=== PATIENT | female | born 1990 | race Caucasian/White ===

== ENCOUNTER 2016-07-22 09:49 | Emergency (ER) | payer BC, OTHER ==
[2016-07-22 09:58] VITALS: BP 126/76; PULSE 109; TEMP 98.5; BMI 31.6
[2016-07-22] MEDS ORDERED: ACETAMINOPHEN 500 MG TABLET (FP) PO ONE (11:34)
[2016-07-22] MEDS ORDERED: ACETAMINOPHEN 500 MG TABLET (FP) ONE (11:36)
--- NOTE | 2016-07-22 11:40 | PDOC ---
History of Present Illness - General Chief Complaint: Cold Symptoms Stated Complaint: COUGH (EMPLOYEE) Time Seen by Provider: 07/22/16 11:07 History Source: Patient Exam Limitations: No Limitations - History of Present Illness Initial Comments: 07/22/16 11:35 My chief complaint: Chills, dry cough, nasal congestion with postnasal drip wheezing History present illness: Patient is a 25 year old female with a history of asthma employee of [employer] here today complaining of sudden onset of body aches, chills since last night with a dry cough, nasal congestion with postnasal drip and intermittent wheezing with shortness of breath last night. He reports that shortness of breath lasted only a few minutes. Patient reports having had her influenza vaccine. Patient denies any previous hospitalizations due to her asthma. Patient denies any shortness of breath or any sore throat presently. Has been around a lot of other sick people with the flu here in the hospital. 07/22/16 11:38 Timing/Duration: getting worse Severity: moderate Associated Symptoms: reports: cough (dry ), fever/chills (chills), shortness of breath (yesterday for few minutes) Past History - Past Medical History Allergies/Adverse Reactions: Allergies Allergy/AdvReac Type Severity Reaction Status Date / Time No Known Drug Allergies Allergy Verified 07/22/16 09:58 Home Medications: Ambulatory Orders Albuterol Sulfate Inhaler - [Ventolin HFA Inhaler -] 2 inh PO Q4H PRN #1 inhaler 07/22/16 Oseltamivir Phosphate [Tamiflu -] 75 mg PO BID #10 capsule MDD 2 07/22/16 Anemia: No Asthma: No Cancer: No Cardiac Disorders: No CVA: No COPD: No CHF: No Dementia: No Diabetes: No GI Disorders: No Disorders: No HTN: No Hypercholesterolemia: No Liver Disease: No Seizures: No Thyroid Disease: No - Psycho/Social/Smoking Cessation Hx Anxiety: No Suicidal Ideation: No Smoking History: Never smoked Have you smoked in the past 12 months: No Hx Alcohol Use: Yes (SOCIAL) Drug/Substance Use Hx: No Substance Use Type: None Hx Substance Use Treatment: No Review of Systems - Review of Systems Able to Perform ROS?: Yes Constitutional: Yes: Chills HEENTM: Yes: Nose Congestion (with post nasal drip) Respiratory: Yes: Cough, Shortness of Breath (when sitting yesterday none today ), Wheezing (intermittent since yesterday none today ) Cardiac (ROS): No: Symptoms Reported ABD/GI: No: Symptoms Reported : No: Symptoms Reported Musculoskeletal: No: Symptoms Reported Integumentary: No: Symptoms Reported Neurological: No: Symptoms reported *Physical Exam - Vital Signs Last Vital Signs Temp Pulse Resp BP Pulse Ox 98.5 F 109 H 20 126/76 98 07/22/16 09:55 07/22/16 09:55 07/22/16 09:55 07/22/16 09:55 07/22/16 09:55 - Physical Exam General Appearance: Yes: Appropriately Dressed HEENT: positive: TMs Normal, Nasal Congestion. negative: Pharyngeal Erythema, Tonsillar Exudate, Tonsillar Erythema, Rhinorrhea, Sinus Tenderness Neck: negative: Lymphadenopathy (R), Lymphadenopathy (L) Respiratory/Chest: positive: Lungs Clear, Normal Breath Sounds. negative: Chest Tender, Respiratory Distress Integumentary: positive: Normal Color Neurologic: positive: Alert, Normal Response, Responsive Medical Decision Making - Medical Decision Making 07/22/16 11:37 Patient is a 25 year old female with a history of asthma employee of [employer] here today complaining of sudden onset of body aches, chills since last night with a dry cough, nasal congestion with postnasal drip and intermittent wheezing with shortness of breath last night. He reports that shortness of breath lasted only a few minutes. Patient reports having had her influenza vaccine. Patient denies any previous hospitalizations due to her asthma. Patient denies any shortness of breath or any sore throat presently. Has been around a lot of other sick people with the flu here in the hospital. She denies any chance of . Nasal congestion with postnasal drip, dry cough, chills, generalized body aches consistent with flulike symptom Asthma exacerbation Plan: Influenza A&B rapid + influenza A Acetaminophen 1 g presently 07/22/16 12:12 tamiflu 75 mg bid for 5 days 07/22/16 12:17 albuterol HFA 2 puffs every hrs prn sob/wheezing *DC/Admit/Observation/Transfer Diagnosis at time of Disposition: Influenza A - Discharge Dispostion Disposition: HOME Condition at time of disposition: Stable - Prescriptions Prescriptions: Oseltamivir Phosphate [Tamiflu -] 75 mg PO BID #10 capsule MDD 2 Albuterol Sulfate Inhaler - [Ventolin HFA Inhaler -] 2 inh PO Q4H PRN #1 inhaler PRN Reason: Short Of Breath/Wheezing - Referrals Referrals: Merary Spring MD [Primary Care Provider] - - Patient Instructions Additional Instructions: Home and rest and drink a lot a fluids Take either acetaminophen or ibuprofen or Aleve for body aches and fever Follow-up with your primary care provider when symptoms subside Use albuterol nebulizer or pump as needed for wheezing as previously ordered Return to emergency room if any difficulty breathing Patient voiced understanding of discharge instructions and QUESTIONS were answered - Post Discharge Activity Work/School Note: Back to Work
== END 2016-07-22 12:18 | disposition home or self-care (01) ==
LOC: JERFT 09:49
DX: J09.X2 Influenza due to identified novel influenza A virus with other respiratory manifestations (principal)
CPT/HCPCS: 87804; 99281-25

== ENCOUNTER 2016-08-11 09:29 | Emergency (ER) | payer OTHER ==
[2016-08-11 09:39] VITALS: BP 123/74; PULSE 105; TEMP 98.1; BMI 31.1
[2016-08-11] MEDS ORDERED: ACETAMINOPHEN 500 MG TABLET (FP) ONE (10:54)
--- NOTE | 2016-08-11 11:58 | PDOC ---
History of Present Illness - General Chief Complaint: Sore Throat Stated Complaint: EMPLOYEE, SORE THROAT Time Seen by Provider: 08/11/16 10:23 History Source: Patient Exam Limitations: No Limitations - History of Present Illness Initial Comments: 08/11/16 11:55 Chief complaint sore throat and generalized body aches Review of present illness: Patient is a 25-year-old female with h/o anemia and asthma employee of [employer] here today complaining of sore throat 3 days with generalized body aches and fever 2 days ago. Patient reports that she was diagnosed with the flu on 07/22/2016 for which she took Tamiflu for 5 days. Patient denies any difficulty breathing or swallowing. Timing/Duration: getting worse Severity: mild Associated Symptoms: reports: fever/chills, other (sore throat ) Past History - Past Medical History Allergies/Adverse Reactions: Allergies Allergy/AdvReac Type Severity Reaction Status Date / Time No Known Drug Allergies Allergy Verified 08/11/16 09:37 Home Medications: Ambulatory Orders Albuterol Sulfate Inhaler - [Ventolin HFA Inhaler -] 2 inh PO Q4H PRN #1 inhaler 07/22/16 Oseltamivir Phosphate [Tamiflu -] 75 mg PO BID #10 capsule MDD 2 07/22/16 Anemia: Yes Asthma: No Cancer: No Cardiac Disorders: No CVA: No COPD: No CHF: No Dementia: No Diabetes: No GI Disorders: No Disorders: No HTN: No Hypercholesterolemia: No Liver Disease: No Seizures: No Thyroid Disease: No - Psycho/Social/Smoking Cessation Hx Anxiety: No Suicidal Ideation: No Smoking History: Never smoked Have you smoked in the past 12 months: No Information on smoking cessation initiated: No Hx Alcohol Use: No Drug/Substance Use Hx: No Substance Use Type: None Hx Substance Use Treatment: No Review of Systems - Review of Systems Able to Perform ROS?: Yes Constitutional: Yes: Chills, Fever HEENTM: Yes: Throat Pain (3 days ) Respiratory: No: Symptoms reported Cardiac (ROS): No: Symptoms Reported ABD/GI: No: Symptoms Reported : No: Symptoms Reported Musculoskeletal: Yes: Other (generalized bodyaches ) Integumentary: No: Symptoms Reported Neurological: No: Symptoms reported *Physical Exam - Vital Signs Last Vital Signs Temp Pulse Resp BP Pulse Ox 98.1 F 105 H 16 123/74 100 08/11/16 09:37 08/11/16 09:37 08/11/16 09:37 08/11/16 09:37 08/11/16 09:37 - Physical Exam General Appearance: Yes: Appropriately Dressed HEENT: positive: TMs Normal, Pharyngeal Erythema, Tonsillar Erythema (with no uvular deviation ). negative: Tonsillar Exudate Neck: negative: Lymphadenopathy (R), Lymphadenopathy (L) Respiratory/Chest: positive: Lungs Clear, Normal Breath Sounds. negative: Chest Tender, Respiratory Distress Cardiovascular: positive: Regular Rhythm, Regular Rate, S1, S2 Integumentary: positive: Normal Color Neurologic: positive: Alert, Normal Response, Responsive ED Treatment Course - ADDITIONAL ORDERS Additional order review: 08/11/16 10:40 Influenza Types A,B Antigen (JIMMY) - Final Nasopharyngeal Swab - Final 08/11/16 10:40 Group A Strep Rapid Antigen - Final Throat Medical Decision Making - Medical Decision Making 08/11/16 11:56 Patient is a 25-year-old female with h/o anemia and asthma employee of [employer] here today complaining of sore throat 3 days with generalized body aches and fever 2 days ago. Patient reports that she was diagnosed with the flu on 07/22/2016 for which she took Tamiflu for 5 days. Patient denies any difficulty breathing or swallowing. Rule out strep throat Rule out influenza A and B recurrence Plan: Acetaminophen 1000 mg by mouth now influenza A & B rapid negative throat c & S + for beta hemolytic strep group A Bicillin LA 1,200,000 units IM now 08/11/16 11:58 08/11/16 12:22 *DC/Admit/Observation/Transfer Diagnosis at time of Disposition: Acute streptococcal tonsillitis Qualifiers: Streptococcal tonsillitis recurrence: non-recurrent Qualified Code(s): J03.00 - Acute streptococcal tonsillitis, unspecified - Discharge Dispostion Disposition: HOME Condition at time of disposition: Stable - Referrals Referrals: Jason Peterson [Primary Care Provider] - - Patient Instructions Additional Instructions: Throughout her toothbrush within the next 2 days Drink A lot a fluids and rest Follow-up with your primary in the next few days Return to emergency room if any difficulty breathing or swallowing Patient voiced understanding of discharge instructions and all questions were answered - Post Discharge Activity
[2016-08-11] MEDS ORDERED: PENICILLIN G BENZATHINE 1,200,000 UNIT/2 ML PFS IM ONE (12:21)
[2016-08-11] MEDS ORDERED: PENICILLIN G BENZATHINE 2,400,000 UNIT/4 ML PFS ONE (12:26)
== END 2016-08-11 12:35 | disposition home or self-care (01) ==
LOC: JERFT 09:29
DX: J03.00 Acute streptococcal tonsillitis, unspecified (principal); B95.0 Streptococcus, group A, as the cause of diseases classified elsewhere; J45.909 Unspecified asthma, uncomplicated; D64.9 Anemia, unspecified
CPT/HCPCS: 87070; 87077; 87430; 87804; 99281-25

== ENCOUNTER 2017-06-23 07:53 | Emergency (ER) | payer OTHER ==
[2017-06-23 07:58] VITALS: BP 137/80; PULSE 102; TEMP 98.2; BMI 34.2
[2017-06-23] MEDS ORDERED: ALBUTEROL SO4 2.5/IPRATROPIUM 0.5 INH SOL 3 ML VIAL.NEB. NEB ONE (08:24)
[2017-06-23] MEDS ORDERED: predniSONE 20 MG TABLET (UD) PO ONE (08:24)
[2017-06-23] MEDS ORDERED: predniSONE 20 MG TABLET (UD) ONE (08:27)
--- NOTE | 2017-06-23 08:31 | PDOC ---
History of Present Illness - General Chief Complaint: Cold Symptoms Stated Complaint: ASTHMA,VOMITING Time Seen by Provider: 06/23/17 08:18 History Source: Patient Exam Limitations: No Limitations - History of Present Illness Initial Comments: 06/23/17 08:25 c/o worsden cough/ excess thick phlegm x 2 days.= no fevers . States feels her Proventil inhaler ran out 06/23/17 09:50 Timing/Duration: reports: getting worse Severity: reports: mild, moderate Associated Symptoms: reports: chest pain/soreness, fever/chills Past History - Travel Traveled outside of the country in the last 30 days: No Close contact w/someone who was outside of country & ill: No - Past Medical History Allergies/Adverse Reactions: Allergies Allergy/AdvReac Type Severity Reaction Status Date / Time No Known Drug Allergies Allergy Verified 06/23/17 07:59 Home Medications: Ambulatory Orders Albuterol Sulfate [Proventil HFA Inhaler -] 1 - 2 inh PO QID #1 inhaler Prednisone [Deltasone -] 20 mg PO BID #8 tablet 06/23/17 Anemia: Yes Asthma: Yes Cancer: No Cardiac Disorders: No CVA: No COPD: No CHF: No Dementia: No Diabetes: No GI Disorders: No Disorders: No HTN: No Hypercholesterolemia: No Liver Disease: No Seizures: No Thyroid Disease: No - Suicide/Smoking/Psychosocial Hx Smoking History: Never smoked Have you smoked in the past 12 months: No Hx Alcohol Use: Yes (social) Drug/Substance Use Hx: No Substance Use Type: None Hx Substance Use Treatment: No Review of Systems - Review of Systems Able to Perform ROS?: Yes Is the patient limited [place] proficient: Yes Constitutional: Yes: Symptoms Reported, See HPI, Fever, Malaise. No: Chills HEENTM: Yes: Symptoms Reported, See HPI, Nose Congestion Respiratory: Yes: Symptoms reported, See HPI, Cough, Wheezing Cardiac (ROS): No: Symptoms Reported, Chest Pain ABD/GI: No: Constipated, Diarrhea : No: Symptoms Reported Neurological: No: Symptoms reported, Headache All Other Systems: Reviewed and Negative *Physical Exam - Vital Signs Last Vital Signs Temp Pulse Resp BP Pulse Ox 98.2 F 102 H 137/80 99 06/23/17 07:56 06/23/17 07:56 06/23/17 07:56 06/23/17 07:56 - Physical Exam General Appearance: Yes: Nourished, Appropriately Dressed, Apparent Distress, Mild Distress HEENT: positive: NANDINI, TMs Normal (congested ), Pharynx Normal, Rhinorrhea, Sinus Tenderness. negative: Normal ENT Inspection, Tonsillar Erythema (clear drainage) Neck: positive: Tender, Supple, Lymphadenopathy (R), Lymphadenopathy (L) Respiratory/Chest: positive: Lungs Clear, Wheezing (course inspiratory expiratory breath sounds, with tightness and wheezing). negative: Normal Breath Sounds Cardiovascular: positive: Regular Rate Gastrointestinal/Abdominal: positive: Soft Extremity: positive: Normal Capillary Refill, Normal Inspection, Normal Range of Motion Integumentary: positive: Dry, Warm, Pale. negative: Normal Color Neurologic: positive: pipe cleaner II-XII NML intact, Fully Oriented, Alert, Normal Mood/ Affect, Normal Response, Motor Strength 5/5 Progress Note - Progress Note Progress Note: Upper respiratory infection with asthmatic exacerbation. No fevers therefore will treat for viral illness and provided prednisone and albuterol to continue *DC/Admit/Observation/Transfer Diagnosis at time of Disposition: Upper respiratory infection, viral - Discharge Dispostion Disposition: HOME Condition at time of disposition: Stable Admit: No - Prescriptions Prescriptions: Albuterol Sulfate [Proventil HFA Inhaler -] 1 - 2 inh PO QID #1 inhaler Prednisone [Deltasone -] 20 mg PO BID #8 tablet - Referrals Referrals: Jason Peterson [Primary Care Provider] - - Patient Instructions Printed Discharge Instructions: DI for Viral Upper Respiratory Infection -- Adult Additional Instructions: Rest, drink lots of fluids: Teas, water, soups, Pedialyte Saltwater gargles Steamy showers/seem to face break up mucus Avoid contact with others until fevers and cough resolved Lots of handwashing and good hygiene Continue [id number] medications for symptomatic relief Tylenol or Motrin for fever and pain Continue albuterol nebulizers every 4-6 hours for the next 2 days then as needed for continued cough Prednisone as directed until completed Followup with private physician in one to 2 days Return to emergency department / pediatric hospital for worsened symptoms, fevers, dehydration - Post Discharge Activity Forms/Work/School Notes: Back to Work
== END 2017-06-23 09:16 | disposition home or self-care (01) ==
LOC: JERFT 07:53
PROC: 3E0F7GC Introduction of Other Therapeutic Substance into Respiratory Tract, Via Natural or Artificial Opening (ICD-10-PCS; principal; 2017-06-23)
DX: J45.901 Unspecified asthma with (acute) exacerbation (principal); J06.9 Acute upper respiratory infection, unspecified; B97.89 Other viral agents as the cause of diseases classified elsewhere
CPT/HCPCS: 99281-25

== ENCOUNTER 2017-07-13 08:26 | Emergency (ER) | payer OTHER ==
[2017-07-13 08:30] VITALS: BP 132/76; PULSE 92; TEMP 97.9; BMI 34.2
--- NOTE | 2017-07-13 09:45 | PDOC ---
History of Present Illness - General Chief Complaint: Cold Symptoms Stated Complaint: EMPLOYEE, INJURY, SORE THROAT Time Seen by Provider: 07/13/17 08:46 History Source: Patient Exam Limitations: No Limitations - History of Present Illness Initial Comments: 07/13/17 09:40 Patient is a [26-year-old female, no significant medical history currently on no medication reports feeling fatigued on , since with sore throat, moist cough, sinus pressure. Intermittent fever. No N/V/D. ] Past Medical History: [Denies]. Allergies: No known allergies Medications: [None] Family History: Non-contributory Social History: Denies smoking, alcohol use, or IVDU Review of Systems GENERAL/CONSTITUTIONAL: [Tactile fever. No weakness. No weight change.] HEAD, EYES, EARS, NOSE AND THROAT: [No change in vision. No ear pain or discharge. Sore throat and dysphagia. Sinus pressure ] CARDIOVASCULAR: [No chest pain or shortness of breath.] RESPIRATORY: [Nonproductive cough, No wheezing, or hemoptysis.] GASTROINTESTINAL: [No nausea, vomiting, diarrhea or constipation. No rectal bleeding.] GENITOURINARY: [No dysuria, frequency, or change in urination.] MUSCULOSKELETAL: [No joint or muscle swelling or pain. No neck or back pain.] SKIN AND BREASTS: [No rash or easy bruising.] NEUROLOGIC: [No headache, vertigo, loss of consciousness, or loss of sensation.] PSYCHIATRIC: [No depression or anxiety.] ENDOCRINE: [No increased thirst. No abnormal weight change.] HEMATOLOGIC/LYMPHATIC: [No anemia, easy bleeding, or history of blood clots.] ALLERGIC/IMMUNOLOGIC: [No hives or skin allergy. No latex allergy.] Physical Exam: GENERAL: [The patient is awake, alert, and fully oriented, in no acute distress. ] HEAD: [Normal with no signs of trauma. + frontal sinus pressure and pain] EYES: [Pupils equal, round and reactive to light, extraocular movements intact, sclera anicteric, conjunctiva clear.] ENT: [Ears normal, nares congested, erythamatous, oropharynx erythematous without exudates. Moist mucous membranes. No uvula deviation] NECK: [Normal range of motion, supple without lymphadenopathy, JVD, or masses.] LUNGS: [Breath sounds equal, clear to auscultation bilaterally. No wheezes, and no crackles.] HEART: [Regular rate and rhythm, normal S1 and S2 without murmur, rub or gallop. ] ABDOMEN: [Soft, nontender, normoactive bowel sounds. No guarding, no rebound. No masses. No bruising or abrasions] MUSCULOSKELETAL: [Normal range of motion, no edema. No clubbing or cyanosis. No cords, erythema, or tenderness. No CVA Tenderness with fist.] NEUROLOGICAL: [Cranial nerves II through XII grossly intact. Normal speech, normal gait.] SKIN: [Warm, Dry, normal turgor, no rashes or lesions noted.] Past History - Past Medical History Allergies/Adverse Reactions: Allergies Allergy/AdvReac Type Severity Reaction Status Date / Time No Known Drug Allergies Allergy Verified 07/13/17 08:28 Home Medications: Ambulatory Orders Amox-Tr/K Cl [Augmentin - 875Mg Tablet] 1 tab PO BID #14 tablet 07/13/17 Fluticasone Prop 0.05% Nasal [Flonase -] 1 - 2 spray NS BID #1 spray.pump Anemia: Yes Asthma: Yes Cancer: No Cardiac Disorders: No CVA: No COPD: No CHF: No Dementia: No Diabetes: No GI Disorders: No Disorders: No HTN: No Hypercholesterolemia: No Liver Disease: No Seizures: No Thyroid Disease: No - Suicide/Smoking/Psychosocial Hx Smoking History: Never smoked Have you smoked in the past 12 months: No Information on smoking cessation initiated: No Hx Alcohol Use: Yes (social) Drug/Substance Use Hx: No Substance Use Type: None Hx Substance Use Treatment: No *Physical Exam - Vital Signs Last Vital Signs Temp Pulse Resp BP Pulse Ox 97.9 F 92 H 18 132/76 100 07/13/17 08:28 07/13/17 08:28 07/13/17 08:28 07/13/17 08:28 07/13/17 08:28 ED Treatment Course - ADDITIONAL ORDERS Additional order review: 07/13/17 09:05 Group A Strep Rapid Antigen - Final Throat Medical Decision Making - Medical Decision Making 07/13/17 09:45 A/P : Patient here for evaluation of sinus pressure and pain, + sore throat, tactile temperature. Patient with clinical signs of an acute sinusitis. Will send rapid strep. Rapid strep is negative, will DC patient home on Augmentin and Flonase, follow- up with PMD in 3 days if symptoms do not start to resolve I discussed the physical exam findings, ancillary test results and final diagnoses with the patient. I answered all of the patient's questions. The patient was satisfied with the care received and felt comfortable with the discharge plan and treatment plan. The patient will call to arrange follow-up and will return to the Emergency Department with any new, persistent or worsening symptoms. *DC/Admit/Observation/Transfer Diagnosis at time of Disposition: Upper respiratory infection, acute - Discharge Dispostion Disposition: HOME Condition at time of disposition: Good Admit: No - Prescriptions Prescriptions: Amox-Tr/K Cl [Augmentin - 875Mg Tablet] 1 tab PO BID #14 tablet Fluticasone Prop 0.05% Nasal [Flonase -] 1 - 2 spray NS BID #1 spray.pump - Referrals Referrals: Jason Peterson [Primary Care Provider] - - Patient Instructions Printed Discharge Instructions: DI for Viral Upper Respiratory Infection -- Adult Additional Instructions: Keep head of bed elevated 45 when sleeping Antibiotics as ordered until completed Cool air humidifier at night while asleep Motrin for fever greater than 101 Followup in the primary care doctor's office in 2 days for evaluation. If any respiratory distress, increased cough, inability to drink, increased wheezing please return immediately to emergency department. - Post Discharge Activity Forms/Work/School Notes: Back to Work
== END 2017-07-13 10:02 | disposition home or self-care (01) ==
LOC: JERFT 08:26
DX: J06.9 Acute upper respiratory infection, unspecified (principal)
CPT/HCPCS: 87070; 87077; 87430; 99281-25

== ENCOUNTER 2018-01-03 07:37 | Emergency (ER) | payer OTHER ==
[2018-01-03 07:57] VITALS: BP 121/63; PULSE 88; TEMP 98.1; BMI 33.3
[2018-01-03] MEDS ORDERED: ALBUTEROL SO4 2.5/IPRATROPIUM 0.5 INH SOL 3 ML VIAL.NEB. NEB ONE ×3 (08:04→08:35)
[2018-01-03] MEDS ORDERED: predniSONE 20 MG TABLET (UD) PO ONE (08:32)
[2018-01-03] MEDS ORDERED: predniSONE 20 MG TABLET (UD) ONE (08:35)
--- NOTE | 2018-01-03 08:35 | PDOC ---
History of Present Illness - General Chief Complaint: Asthma Stated Complaint: WHEEZING,COUGH Time Seen by Provider: 01/03/18 08:16 History Source: Patient Exam Limitations: No Limitations - History of Present Illness Initial Comments: 01/03/18 08:32 Patient came for evaluation of acute asthma exacerbation. Suffers from asthma and whether has caused shortness of breath and wheezing. Worse this morning. The treatment at home, but did not improve came to ER for evaluation. Uses albuterol nebs at home Timing/Duration: reports: just prior to arrival, getting worse Severity: reports: moderate Associated Symptoms: reports: chest pain/soreness, cough, nasal congestion, nasal drainage. denies: fever/chills Past History - Travel Traveled outside of the country in the last 30 days: No Close contact w/someone who was outside of country & ill: No - Past Medical History Allergies/Adverse Reactions: Allergies Allergy/AdvReac Type Severity Reaction Status Date / Time No Known Drug Allergies Allergy Verified 01/03/18 07:44 Home Medications: Ambulatory Orders predniSONE [Deltasone -] 20 mg PO BID #8 tablet 01/03/18 Anemia: Yes Asthma: Yes Cancer: No Cardiac Disorders: No CVA: No COPD: No CHF: No DVT: No Dementia: No Diabetes: No GI Disorders: No Disorders: No HTN: No Hypercholesterolemia: No Liver Disease: No Seizures: No Thyroid Disease: No - Suicide/Smoking/Psychosocial Hx Smoking History: Never smoked Have you smoked in the past 12 months: No Information on smoking cessation initiated: No Hx Alcohol Use: Yes (social) Drug/Substance Use Hx: No Substance Use Type: None Hx Substance Use Treatment: No Review of Systems - Review of Systems Able to Perform ROS?: Yes Is the patient limited Welsh proficient: Yes Constitutional: Yes: Symptoms Reported, See HPI, Malaise. No: Fever Respiratory: Yes: Symptoms reported, See HPI, Cough, Shortness of Breath, Wheezing Integumentary: Yes: Symptoms Reported, See HPI All Other Systems: Reviewed and Negative *Physical Exam - Vital Signs Last Vital Signs Temp Pulse Resp BP Pulse Ox 98.1 F 88 18 121/63 100 01/03/18 07:44 01/03/18 07:44 01/03/18 07:44 01/03/18 07:44 01/03/18 07:44 - Physical Exam General Appearance: Yes: Nourished, Appropriately Dressed, Apparent Distress HEENT: positive: NANDNII, Normal ENT Inspection, TMs Normal, Pharynx Normal Neck: positive: Supple, Lymphadenopathy (L). negative: Tender, Lymphadenopathy (R) Respiratory/Chest: positive: Wheezing (inspiratory and expiratory breath sounds , wheezing throughout) Gastrointestinal/Abdominal: positive: Soft Musculoskeletal: positive: Normal Inspection Extremity: positive: Normal Capillary Refill Integumentary: positive: Normal Color, Dry, Warm Neurologic: positive: medical records supervisor II-XII NML intact, Fully Oriented, Alert, Normal Mood/ Affect, Normal Response, Motor Strength 11/13 ED Treatment Course - Medications Given in the ED: ED Medications Discontinued Medications Generic Name Dose Route Start Last Admin Trade Name Freq PRN Reason Stop Dose Admin Albuterol/Ipratropium 1 amp 01/03/18 08:04 01/03/18 07:50 Duoneb - NEB 01/03/18 08:05 1 amp NOW ONE Administration Medical Decision Making - Medical Decision Making 01/03/18 10:23 Much improved after 3 DuoNeb and 60 mg of by mouth prednisone. Aerating much better and states feels well ready for discharge. *DC/Admit/Observation/Transfer Diagnosis at time of Disposition: Asthma Qualifiers: Asthma severity: moderate Asthma persistence: unspecified Asthma complication type: with acute exacerbation Qualified Code(s): J45.901 - Unspecified asthma with (acute) exacerbation - Discharge Dispostion Disposition: HOME Condition at time of disposition: Stable Decision to Admit order: No - Prescriptions Prescriptions: predniSONE [Deltasone -] 20 mg PO BID #8 tablet - Referrals - Patient Instructions Printed Discharge Instructions: Asthma -- Adult Additional Instructions: Rest, drink lots of fluids: Teas, water, soups, Pedialyte Saltwater gargles Steamy showers/seem to face break up mucus Avoid contact with others until fevers and cough resolved Lots of handwashing and good hygiene Continue [id number] medications for symptomatic relief Tylenol or Motrin for fever and pain Continue albuterol nebulizers every 4-6 hours for the next 2 days then as needed for continued cough Prednisone as directed until completed Followup with private physician in one to 2 days Return to emergency department / pediatric hospital for worsened symptoms, fevers, dehydration - Post Discharge Activity Forms/Work/School Notes: Back to Work
== END 2018-01-03 10:03 | disposition home or self-care (01) ==
LOC: JER 07:37 → JERFT 07:37
PROC: 3E0F7GC Introduction of Other Therapeutic Substance into Respiratory Tract, Via Natural or Artificial Opening (ICD-10-PCS; principal; 2018-01-03)
PROC: 3E0F7GC Introduction of Other Therapeutic Substance into Respiratory Tract, Via Natural or Artificial Opening (ICD-10-PCS; 2018-01-03)
DX: J45.901 Unspecified asthma with (acute) exacerbation (principal)
CPT/HCPCS: 99281-25; J7620

== ENCOUNTER 2018-04-19 08:05 | Emergency (ER) | payer OTHER ==
[2018-04-19 08:16] VITALS: BP 108/75; PULSE 85; TEMP 98.5; BMI 34.7
[2018-04-19] MEDS ORDERED: ALBUTEROL SO4 2.5/IPRATROPIUM 0.5 INH SOL 3 ML VIAL.NEB. NEB ONE ×3 (08:28→09:00)
--- NOTE | 2018-04-19 08:38 | PDOC ---
History of Present Illness - General Chief Complaint: Asthma Stated Complaint: BREATHING PROBLEMS Time Seen by Provider: 04/19/18 08:22 History Source: Patient Exam Limitations: No Limitations - History of Present Illness Initial Comments: 04/19/18 08:30 27 yr female with c/o cough short of breath started last night, pt has history of asthma no intubations or hospitalizations. denies fever. 04/19/18 09:15 Past History - Past Medical History Allergies/Adverse Reactions: Allergies Allergy/AdvReac Type Severity Reaction Status Date / Time No Known Drug Allergies Allergy Verified 04/19/18 08:13 Home Medications: Ambulatory Orders predniSONE [Deltasone -] 20 mg PO BID #8 tablet 01/03/18 Albuterol Sulfate Inhaler - [Ventolin HFA Inhaler -] 1 - 2 inh PO Q4H #1 inhaler 04/19/18 Prednisone [Deltasone] 40 mg PO DAILY #6 tablet 04/19/18 Prednisone [Deltasone] 40 mg PO DAILY #6 tablet 04/19/18 Anemia: Yes Asthma: Yes Cancer: No Cardiac Disorders: No CVA: No COPD: No CHF: No DVT: No Dementia: No Diabetes: No GI Disorders: No Disorders: No HTN: No Hypercholesterolemia: No Liver Disease: No Seizures: No Thyroid Disease: No - Suicide/Smoking/Psychosocial Hx Smoking History: Never smoked Have you smoked in the past 12 months: No Hx Alcohol Use: Yes (social) Drug/Substance Use Hx: No Substance Use Type: None Hx Substance Use Treatment: No Review of Systems - Review of Systems Able to Perform ROS?: Yes Is the patient limited Sami proficient: No Constitutional: No: Symptoms Reported HEENTM: No: Symptoms Reported Respiratory: Yes: Symptoms reported Cardiac (ROS): No: Symptoms Reported ABD/GI: No: Symptoms Reported : No: Symptoms Reported *Physical Exam - Vital Signs Last Vital Signs Temp Pulse Resp BP Pulse Ox 98.5 F 85 18 108/75 98 04/19/18 08:13 04/19/18 08:13 04/19/18 08:13 04/19/18 08:13 04/19/18 08:13 - Physical Exam General Appearance: Yes: Nourished, Appropriately Dressed HEENT: positive: EOMI, NANDINI, TMs Normal, Pharynx Normal Neck: positive: Supple. negative: Tender Respiratory/Chest: positive: Lungs Clear, Normal Breath Sounds, Decreased Breath Sounds. 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, Fully Oriented, Alert, Normal Mood/ Affect Medical Decision Making - Medical Decision Making 04/19/18 09:16 cc: cough , short of breath no wheezing no fever no abd pain will give duoneb x2 04/19/18 09:54 pt improved after the 2 nebulizers feels much better will dc home with prednisone and albuterol inhlarer pt agrees with plan of care *DC/Admit/Observation/Transfer Diagnosis at time of Disposition: Asthma Qualifiers: Asthma severity: moderate Asthma persistence: persistent Asthma complication type: uncomplicated Qualified Code(s): J45.40 - Moderate persistent asthma, uncomplicated - Discharge Dispostion Disposition: HOME Condition at time of disposition: Good - Prescriptions Prescriptions: Albuterol Sulfate Inhaler - [Ventolin HFA Inhaler -] 1 - 2 inh PO Q4H #1 inhaler Prednisone [Deltasone] 40 mg PO DAILY #6 tablet Prednisone [Deltasone] 40 mg PO DAILY #6 tablet - Referrals Referrals: Barrie Canseco [Primary Care Provider] - - Patient Instructions Printed Discharge Instructions: Asthma -- Adult Additional Instructions: drink pleanty of water to stay hydrated increase vitamin c and Zinc to boost immune system (Shanell C) take prednisone as directed use inhaler every 4hrs as needed return if worse please follow with your doctor in 24hrs for a follow up - Post Discharge Activity
== END 2018-04-19 09:58 | disposition home or self-care (01) ==
LOC: JERFT 08:05
PROC: 3E0F7GC Introduction of Other Therapeutic Substance into Respiratory Tract, Via Natural or Artificial Opening (ICD-10-PCS; principal; 2018-04-19)
PROC: 3E0F7GC Introduction of Other Therapeutic Substance into Respiratory Tract, Via Natural or Artificial Opening (ICD-10-PCS; 2018-04-19)
DX: J45.40 Moderate persistent asthma, uncomplicated (principal)
CPT/HCPCS: 99281-25; J7620

== ENCOUNTER 2018-05-02 09:25 | Emergency (ER) | payer OTHER ==
[2018-05-02 09:31] VITALS: BP 107/80; PULSE 84; TEMP 98.2; BMI 34.2
[2018-05-02] MEDS ORDERED: PSEUDOEPHEDRINE HCL 30 MG TABLET PO ONE (10:17)
[2018-05-02] MEDS ORDERED: PSEUDOEPHEDRINE HCL 60 MG TABLET ONE (10:22)
--- NOTE | 2018-05-02 10:22 | PDOC ---
History of Present Illness - General Chief Complaint: Cold Symptoms Stated Complaint: COLD SYMPTOMS Time Seen by Provider: 05/02/18 09:41 History Source: Patient Exam Limitations: No Limitations Past History - Travel Traveled outside of the country in the last 30 days: No Close contact w/someone who was outside of country & ill: No - Past Medical History Allergies/Adverse Reactions: Allergies Allergy/AdvReac Type Severity Reaction Status Date / Time No Known Drug Allergies Allergy Verified 05/02/18 09:28 Home Medications: Ambulatory Orders Albuterol Sulfate Inhaler - [Ventolin HFA Inhaler -] 1 - 2 inh PO Q4H #1 inhaler 04/19/18 Acetaminophen W/ Codeine Liq [Tylenol W/Codeine Oral Solution -] 10 ml PO HS # 120 ml MDD 1 05/02/18 Fluticasone Prop 0.05% Nasal [Flonase -] 1 - 2 spray NS DAILY #1 spray.pump Pseudoephedrine HCl 30 mg PO Q6H #28 tablet 05/02/18 Anemia: Yes Asthma: Yes Cancer: No Cardiac Disorders: No CVA: No COPD: No CHF: No DVT: No Dementia: No Diabetes: No GI Disorders: No Disorders: No HTN: No Hypercholesterolemia: No Liver Disease: No Seizures: No Thyroid Disease: No - Suicide/Smoking/Psychosocial Hx Smoking History: Never smoked Have you smoked in the past 12 months: No Hx Alcohol Use: Yes (social) Drug/Substance Use Hx: No Substance Use Type: None Hx Substance Use Treatment: No Review of Systems - Review of Systems Able to Perform ROS?: Yes Comments:: 05/02/18 10:25 CONSTITUTIONAL: Absent: fever, chills, diaphoresis, generalized weakness, malaise, loss of appetite HEENT: Absent: rhinorrhea, nasal congestion, throat pain, throat swelling, difficulty swallowing, mouth swelling, ear pain, eye pain, visual Changes CARDIOVASCULAR: Absent: chest pain, loss of consciousness, palpitations, irregular heart rate, peripheral edema RESPIRATORY: Absent: cough, shortness of breath, dyspnea with exertion, orthopnea, wheezing, stridor, hemoptysis GASTROINTESTINAL: Absent: abdominal pain, abdominal distension, nausea, vomiting, diarrhea, constipation, melena, hematochezia GENITOURINARY: Absent: dysuria, frequency, urgency, hesitancy, hematuria, flank pain, genital pain MUSCULOSKELETAL: Absent: myalgia, arthralgia, joint swelling SKIN: Absent: rash, itching, pallor HEMATOLOGIC/IMMUNOLOGIC: Absent: easy bleeding, easy bruising, lymphadenopathy, frequent infections ENDOCRINE: Absent: unexplained weight gain, unexplained weight loss, heat intolerance, cold intolerance NEUROLOGIC: Absent: headache, focal weakness or paresthesias, dizziness, unsteady gait, seizure, mental status changes, bladder or bowel incontinence PSYCHIATRIC: Absent: anxiety, depression, suicidal or homicidal ideation, hallucinations. Is the patient limited Khmer proficient: No *Physical Exam - Vital Signs Last Vital Signs Temp Pulse Resp BP Pulse Ox 98.2 F 84 18 107/80 100 05/02/18 09:28 05/02/18 09:28 05/02/18 09:28 05/02/18 09:28 05/02/18 09:28 - Physical Exam Comments: 05/02/18 10:26 GENERAL: Well developed, well nourished. Awake and alert. No acute distress. HEENT: Normocephalic, atraumatic. PERRLA, EOMI. No conjunctival pallor. Sclera are non- icteric. Moist mucous membranes. Oropharynx is clear. NECK: Supple. Full ROM. No JVD. Carotid pulses 2+ and symmetric, without bruits. No thyromegaly. No lymphadenopathy. CARDIOVASCULAR: Regular rate and rhythm. No murmurs, rubs, or gallops. Distal pulses are 2+ and symmetric. PULMONARY: No evidence of respiratory distress. Lungs clear to auscultation bilaterally. No wheezing, rales or rhonchi. ABDOMINAL: Soft. Non-tender. Non-distended. No rebound or guarding. No organomegaly. Normoactive bowel sounds. MUSCULOSKELETAL Normal range of motion at all joints. No bony deformities or tenderness. No CVA tenderness. EXTREMITIES: No cyanosis. No clubbing. No edema. No calf tenderness. SKIN: Warm and dry. Normal capillary refill. No rashes. No jaundice. NEUROLOGICAL: Alert, awake, appropriate. Cranial nerves 2-12 intact. No deficits to light touch and temperature in face, upper extremities and lower extremities. No motor deficits in the in face, upper extremities and lower extremities. Normoreflexic in the upper and lower extremities. Normal speech. Toes are down- going bilaterally. Gait is normal without ataxia. PSYCHIATRIC: Cooperative. Good eye contact. Appropriate mood and affect. *DC/Admit/Observation/Transfer Diagnosis at time of Disposition: Upper respiratory infection, acute - Discharge Dispostion Disposition: HOME Condition at time of disposition: Stable Decision to Admit order: No - Prescriptions Prescriptions: Acetaminophen W/ Codeine Liq [Tylenol W/Codeine Oral Solution -] 10 ml PO HS # 120 ml MDD 1 Fluticasone Prop 0.05% Nasal [Flonase -] 1 - 2 spray NS DAILY #1 spray.pump Pseudoephedrine HCl 30 mg PO Q6H #28 tablet - Referrals Referrals: Madhav Garcia MD [Staff Physician] - - Patient Instructions Printed Discharge Instructions: DI for Viral Upper Respiratory Infection -- Adult Additional Instructions: You have an upper respiratory infection, or the common cold. Take Sudafed 30mg every 6 hours as needed for congestion Use the Flonase twice a day, one spray in each nosil Buy over the counter nasal saline to help with dry nose. Take the Tylenol with codeine at night before bed. Do not mix with the Sudafed. Do not drink alcohol or drive after taking this medication as it may make you sleepy. Please take Motrin 800 mg every 8 hours as needed for pain not to exceed 3000 mg a day. Drink plenty of fluids. Cough drops and warm tea may help your symptoms as well. Please follow up with her primary care doctor this week. Return to the emergency department if you have difficulty breathing, shortness of breath, worsening pain, nausea, vomiting or if you have any changes in your symptoms. - Post Discharge Activity Forms/Work/School Notes: Back to Work
== END 2018-05-02 10:26 | disposition home or self-care (01) ==
LOC: JERFT 09:25
DX: J06.9 Acute upper respiratory infection, unspecified (principal); J45.909 Unspecified asthma, uncomplicated; D64.9 Anemia, unspecified
CPT/HCPCS: 99281-25

== ENCOUNTER 2018-08-15 10:49 | Emergency (ER) | payer OTHER | END 2018-08-15 13:36 | disposition home or self-care (01) | LOC: JERFT 10:49 ==

== ENCOUNTER 2019-01-25 12:16 | Emergency (ER) | payer OTHER ==
--- NOTE | 2019-01-25 13:13 | PDOC ---
History of Present Illness - General Chief Complaint: Sore Throat Stated Complaint: SORE THROAT/COUGH Time Seen by Provider: 01/25/19 12:27 History Source: Patient Exam Limitations: Clinical Condition - History of Present Illness Initial Comments: 01/25/19 13:12 Patient with history of asthma present with complaint of three-day history of persistent dry cough for nasal congestion and now sore throat since yesterday. Denies fever, chills. Denies sick contacts. Denies any other symptoms Timing/Duration: other (3 days) Past History - Past Medical History Allergies/Adverse Reactions: Allergies Allergy/AdvReac Type Severity Reaction Status Date / Time No Known Drug Allergies Allergy Verified 08/15/18 11:47 Home Medications: Ambulatory Orders Albuterol Sulfate [Proair Respiclick] 90 mcg IH 08/15/18 Fluticasone/Salmeterol [Advair 250-50 Diskus] 1 each IH BID 08/15/18 Oseltamivir Phosphate [Tamiflu -] 75 mg PO BID #10 capsule 08/15/18 Prednisone [Deltasone] mg PO DAILY 08/15/18 Benzonatate [Tessalon Pearls -] 100 mg PO TID PRN #20 capsule 01/25/19 Ipratropium [place] 2 spray NS BID PRN #1 spray 01/25/19 Methylprednisolone [Medrol Dose Lui] 4 mg PO ASDIR #21 tablet 01/25/19 Anemia: Yes Asthma: Yes Cancer: No Cardiac Disorders: No CVA: No COPD: No CHF: No DVT: No Dementia: No Diabetes: No GI Disorders: No Disorders: No HTN: No Hypercholesterolemia: No Liver Disease: No Seizures: No Thyroid Disease: No - Suicide/Smoking/Psychosocial Hx Smoking History: Never smoked Have you smoked in the past 12 months: No Information on smoking cessation initiated: No Hx Alcohol Use: No Drug/Substance Use Hx: No Substance Use Type: None Hx Substance Use Treatment: No Review of Systems - Review of Systems Able to Perform ROS?: Yes Is the patient limited Nauruan proficient: No Constitutional: No: Chills, Fever, Malaise HEENTM: Yes: Symptoms Reported, See HPI, Nose Congestion, Throat Pain. No: Eye Pain, Blurred Vision, Tearing, Recent change in vision, Double Vision, Cataracts , Ear Pain, Ocular Prothesis, Ear Discharge, Nose Pain, Tinnitus, Nose Bleeding , Hearing Loss, Throat Swelling, Mouth Pain, Dental Problems, Difficulty Swallowing, Mouth Swelling, Other Respiratory: Yes: Symptoms reported, See HPI, Cough. No: Orthopnea, Shortness of Breath, SOB with Exertion, SOB at Rest, Stridor, Wheezing, Productive cough, Hemoptysis, Other Cardiac (ROS): No: Symptoms Reported, See HPI, Chest Pain, Edema, Irregular Heart Rate, Lightheadedness, Palpitations, Syncope, Chest Tightness, Other ABD/GI: No: Nausea, Vomiting All Other Systems: Reviewed and Negative *Physical Exam - Vital Signs Last Vital Signs Temp Pulse Resp BP Pulse Ox 98.2 F 99 H 18 117/74 100 01/25/19 12:26 01/25/19 12:26 01/25/19 12:01/25/19 12:01/25/19 12:26 - Physical Exam Comments: 01/25/19 13:14 GENERAL: Well developed, well nourished. Awake and alert. No acute distress. HEENT: Normocephalic, atraumatic. PERRLA, EOMI. No conjunctival pallor. Sclera are non-icteric. Moist mucous membranes. Oropharynx is clear. NECK: Supple. Full ROM. CARDIOVASCULAR: Regular rate and rhythm. No murmurs, rubs, or gallops. Distal pulses are 2+ and symmetric. PULMONARY: No evidence of respiratory distress. Lungs clear to auscultation bilaterally. No wheezing, rales or rhonchi. ABDOMINAL: Soft. Non-tender. Non-distended. No rebound or guarding. No organomegaly. Normoactive bowel sounds. MUSCULOSKELETAL Normal range of motion at all joints. EXTREMITIES: No cyanosis. No clubbing. No edema. SKIN: Warm and dry. Normal capillary refill. No rashes. NEUROLOGICAL: Alert, awake, appropriate. Gait is normal without ataxia. PSYCHIATRIC: Cooperative. Good eye contact. Appropriate mood General Appearance: Yes: Nourished, Appropriately Dressed. No: Apparent Distress Medical Decision Making - Medical Decision Making 01/25/19 13:14 Patient with history of asthma present with complaint of three-day history of persistent dry cough for nasal congestion and now sore throat since yesterday. Denies fever, chills. Denies sick contacts. Denies any other symptoms Clinical exam unremarkable with lungs clear to auscultation bilateral. No pharyngeal erythema on exam. Symptoms likely viral URI with pharyngitis from cough versus less likely strep pharyngitis. Rapid strep ordered to rule out strep pharyngitis 01/25/19 13:47 rapid strep negative. Patient symptoms likely viral URI with pharyngitis and will be treated conservatively with PCP f/u as needed *DC/Admit/Observation/Transfer Diagnosis at time of Disposition: Upper respiratory infection, acute Pharyngitis Qualifiers: Pharyngitis/tonsillitis etiology: unspecified etiology Qualified Code(s): J02.9 - Acute pharyngitis, unspecified - Discharge Dispostion Disposition: HOME Condition at time of disposition: Stable Decision to Admit order: No - Prescriptions Prescriptions: Benzonatate [Tessalon Pearls -] 100 mg PO TID PRN #20 capsule PRN Reason: Cough Ipratropium [place] 2 spray NS BID PRN #1 spray PRN Reason: nasal congestion Methylprednisolone [Medrol Dose Lui] 4 mg PO ASDIR #21 tablet - Referrals Referrals: Ed Wills MD [Staff Physician] - - Patient Instructions Printed Discharge Instructions: DI for Pharyngitis/Tonsillopharyngitis -- Adult , DI for Viral Upper Respiratory Infection -- Adult Additional Instructions: Your strep test was negative. Your sore throat was likely from cough. Take prescribed medication as prescribed. Increase fluid intake. Follow-up with primary care needed. - Post Discharge Activity
[2019-01-25 13:24] VITALS: BP 117/74; PULSE 99; TEMP 98.2; BMI 33.9
== END 2019-01-25 13:41 | disposition home or self-care (01) ==
LOC: JERFT 12:16
DX: J11.1 Influenza due to unidentified influenza virus with other respiratory manifestations (principal); J45.909 Unspecified asthma, uncomplicated
CPT/HCPCS: 87070; 87077; 87880; 99281-25

== ENCOUNTER 2019-01-31 07:51 | Emergency (ER) | payer OTHER ==
[2019-01-31 07:59] VITALS: BP 123/83; PULSE 84; TEMP 98.7; BMI 33.3
--- NOTE | 2019-01-31 08:23 | PDOC ---
History of Present Illness - General Chief Complaint: Abscess Boil Stated Complaint: RECTAL BLEEDING Time Seen by Provider: 01/31/19 08:08 History Source: Patient Exam Limitations: Clinical Condition - History of Present Illness Initial Comments: 01/31/19 08:35 Patient with no significant past medical history present with complaint of 2 weeks history of abscess to sacrum which has been draining since last night with bloody discharge from abscess. Denies fever, chills. Reported pain when sitting. Denies any other symptoms Timing/Duration: reports: week (2 weeks) Past History - Past Medical History Allergies/Adverse Reactions: Allergies Allergy/AdvReac Type Severity Reaction Status Date / Time No Known Drug Allergies Allergy Verified 01/31/19 07:55 Home Medications: Ambulatory Orders Albuterol Sulfate [Proair Respiclick] 90 mcg IH 08/15/18 Fluticasone/Salmeterol [Advair 250-50 Diskus] 1 each IH BID 08/15/18 Oseltamivir Phosphate [Tamiflu -] 75 mg PO BID #10 capsule 08/15/18 Prednisone [Deltasone] mg PO DAILY 08/15/18 Benzonatate [Tessalon Pearls -] 100 mg PO TID PRN #20 capsule 01/25/19 Ipratropium Rowe 2 spray NS BID PRN #1 spray 01/25/19 Methylprednisolone [Medrol Dose Lui] 4 mg PO ASDIR #21 tablet 01/25/19 Cephalexin Monohydrate [Keflex -] 500 mg PO BID 7 Days #14 capsule 01/31/19 Ibuprofen 800 mg PO Q8H PRN #20 tablet 01/31/19 Mupirocin Ointment [Bactroban 2% Ointment -] 1 applic TP BID #1 tube 01/31/19 Anemia: Yes Asthma: Yes Cancer: No Cardiac Disorders: No CVA: No COPD: No CHF: No DVT: No Dementia: No Diabetes: No GI Disorders: No Disorders: No HTN: No Hypercholesterolemia: No Liver Disease: No Seizures: No Thyroid Disease: No - Suicide/Smoking/Psychosocial Hx Smoking History: Never smoked Have you smoked in the past 12 months: No Hx Alcohol Use: Yes (social) Drug/Substance Use Hx: No Substance Use Type: None Hx Substance Use Treatment: No Review of Systems - Review of Systems Able to Perform ROS?: Yes Is the patient limited Japanese proficient: No Constitutional: No: Chills, Fever, Malaise HEENTM: No: Symptoms Reported Respiratory: No: Symptoms reported Cardiac (ROS): No: Symptoms Reported Musculoskeletal: Yes: Symptoms Reported, See HPI, Muscle Pain (sacrum) Integumentary: Yes: Symptoms Reported, See HPI, Other (abscess to sacrum). No: Erythema All Other Systems: Reviewed and Negative *Physical Exam - Vital Signs Last Vital Signs Temp Pulse Resp BP Pulse Ox 98.7 F 84 16 123/83 99 01/31/19 07:55 01/31/19 07:55 01/31/19 07:55 01/31/19 07:55 01/31/19 07:55 - Physical Exam Comments: 01/31/19 08:34 GENERAL: Well developed, well nourished. Awake and alert in mild acute distress. NECK: Supple. Full ROM. PULMONARY: No evidence of respiratory distress. MUSCULOSKELETAL Normal range of motion at all joints. SKIN: Warm and dry. Normal capillary refill. 1 cm hard induration to sacrum consistent with pilonidal cyst with draining clear discharge from cyst. NEUROLOGICAL: Alert, awake, appropriate. Gait is normal without ataxia. PSYCHIATRIC: Cooperative. Good eye contact. Appropriate mood General Appearance: Yes: Nourished, Appropriately Dressed, Mild Distress Medical Decision Making - Medical Decision Making 01/31/19 08:36 Patient with no significant past medical history present with complaint of 2 weeks history of abscess to sacrum which has been draining since last night with bloody discharge from abscess. Denies fever, chills. Reported pain when sitting. Denies any other symptoms 1 cm area of hard induration over sacrum with clear discharge from induration consistent with pilonidal cyst. No need for drainage given cyst is already draining. Patient be discharged home with Keflex antibiotics and topical Bactroban with advised to do hot compresses and dermatology follow-up *DC/Admit/Observation/Transfer Diagnosis at time of Disposition: Pilonidal cyst without abscess - Discharge Dispostion Disposition: HOME Condition at time of disposition: Stable Decision to Admit order: No - Prescriptions Prescriptions: Cephalexin Monohydrate [Keflex -] 500 mg PO BID 7 Days #14 capsule Ibuprofen 800 mg PO Q8H PRN #20 tablet PRN Reason: pain Mupirocin Ointment [Bactroban 2% Ointment -] 1 applic TP BID #1 tube - Referrals Referrals: Camila Scott MD [Staff Physician] - - Patient Instructions Printed Discharge Instructions: DI for Anal Abscess Additional Instructions: Apply hot compress to area 2-3 times a day for 5-10mins for swelling. Take medications as prescribed. Follow-up with referred dermatology if no improvement in 4 days - Post Discharge Activity Forms/Work/School Notes: Back to Work
== END 2019-01-31 08:40 | disposition home or self-care (01) ==
LOC: JERFT 07:51
DX: L05.91 Pilonidal cyst without abscess (principal)
CPT/HCPCS: 99281-25

== ENCOUNTER 2019-09-12 17:25 | Emergency (ER) | payer OTHER ==
[2019-09-12 17:36] VITALS: BP 126/86; PULSE 90; TEMP 98.5; BMI 30.9
[2019-09-12] MEDS ORDERED: OXYMETAZOLINE 0.05% NASAL SOLUTION 15 ML BOTTLE NS ONE (18:40)
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
== END 2019-09-12 20:53 | disposition home or self-care (01) ==
LOC: JER 17:25 → JERFT 17:25
PROC: 0HQ1XZZ Repair Face Skin, External Approach (ICD-10-PCS; principal; 2019-09-12)
PROC: 093K7ZZ Control Bleeding in Nasal Mucosa and Soft Tissue, Via Natural or Artificial Opening (ICD-10-PCS; 2019-09-12)
DX: S02.2XXA Fracture of nasal bones, initial encounter for closed fracture (principal); S01.21XA Laceration without foreign body of nose, initial encounter; S10.81XA Abrasion of other specified part of neck, initial encounter; Y04.2XXA Assault by strike against or bumped into by another person, initial encounter; Y93.89 Activity, other specified; Y92.89 Other specified places as the place of occurrence of the external cause; Y99.8 Other external cause status; Y07.9 Unspecified perpetrator of maltreatment and neglect; J45.909 Unspecified asthma, uncomplicated; D64.9 Anemia, unspecified
CPT/HCPCS: 70450-TC; 70486-TC; 99284-25